=== PATIENT | female | born 1960 | race Caucasian/White ===

== ENCOUNTER → 2023-07-25 07:54 | Outpatient (REF) | payer BC, SELFPAY | LOC: WDC 07:54 | PROVIDERS: ATTENDING PHYSICIAN Obstetrics & Gynecology Gynecology; FAMILY PHYSICIAN Family Medicine | DX: R92.2 Inconclusive mammogram (principal) | CPT/HCPCS: 76641 ==

== ENCOUNTER → 2024-03-19 16:18 | Outpatient (REF) | payer BC, SELFPAY | LOC: HWWDC 16:18 | PROVIDERS: ATTENDING PHYSICIAN Obstetrics & Gynecology Gynecology; FAMILY PHYSICIAN Family Medicine | DX: Z01.419 Encounter for gynecological examination (general) (routine) without abnormal findings (principal) | CPT/HCPCS: 77063; 77067 ==

== ENCOUNTER → 2024-06-20 06:18 | Outpatient (REF) | payer BC, SELFPAY ==
[2024-06-20 10:07] LABS: % Basophils 0.4 % (0-2); % Eosinophils 0.9 % (0-6); % Lymphocytes 23.2 % (20.5-51.1); % Monocytes 9.9 % (1.7-9.3); % Neutrophils 65.6 % (42.2-75.2); Absolute Lymphocytes 1.1 10^3/uL (1.2-3.4); Absolute Monocytes 0.5 10^3/uL (0.1-0.6); Hematocrit 41.1 % (37.0-47.0); Hemoglobin 13.4 g/dL (12.0-16.0); Mean Corp Hgb Conc. 32.6 g/dL (33.0-37.0); Mean Corpuscular Hgb 29.3 pg (27.0-31.0); Mean Corpuscular Volume 89.9 fL (81.0-99.0); Mean Platelet Volume 10.2 fL (7.4-10.4); Nucleated Red Blood Cells % 0 %; Platelet Count 226 10^3/uL (130-400); Red Blood Cell Count 4.57 10^6/uL (4.20-5.40); Red Cell Dist. Width 12.8 % (11.5-14.5); White Blood Cell Count 4.5 10^3/uL (4.8-10.8)
[2024-06-20 10:47] LABS: Glycohemoglobin (HgbA1c) 5.6 % (4.0-5.6)
[2024-06-20 10:59] LABS: ALT (SGPT) 20 U/L (0-35); AST (SGOT) 32 U/L (14-36); Albumin 4.3 g/dl (3.5-5.0); Alkaline Phosphatase 111 U/L (38-126); Blood Urea Nitrogen 19 mg/dl (7-17); Calcium 9.7 mg/dl (8.4-10.2); Carbon Dioxide 25 mmol/L (22-30); Chloride 105 mmol/L (98-107); Glucose 100 mg/dl (70-99); HDL Cholesterol 87 mg/dl; LDL Cholesterol, Calculated 111 mg/dl; Potassium 4.4 mmol/L (3.5-5.1); Sodium 138 mmol/L (135-145); Total Bilirubin 0.8 mg/dl (0.2-1.3); Total Cholesterol 215 mg/dl (50-199); Total Protein 6.8 g/dl (6.3-8.2); Triglyceride 86 mg/dl (10-149); Very Low Density Lipoprotein 17 mg/dl (0-30); eGFR > 60.00
[2024-06-20 11:03] LABS: TSH Reflex To Free T4 1.43 uIU/ml (0.47-4.68)
[2024-06-20 19:16] LABS: Hepatitis C Antibody Negative (Negative)
== END ==
LOC: HWLAB 06:18
PROVIDERS: ATTENDING PHYSICIAN Internal Medicine
DX: J06.9 Acute upper respiratory infection, unspecified (principal); Z13.0 Encounter for screening for diseases of the blood and blood-forming organs and certain disorders involving the immune mechanism; R79.89 Other specified abnormal findings of blood chemistry; Z13.1 Encounter for screening for diabetes mellitus; Z13.220 Encounter for screening for lipoid disorders; Z13.29 Encounter for screening for other suspected endocrine disorder; Z11.59 Encounter for screening for other viral diseases
CPT/HCPCS: 36415; 80053; 80061; 83036; 84443; 85025; 86803

== ENCOUNTER → 2024-07-04 09:24 | Outpatient (REF) | payer BC, SELFPAY | LOC: HWRAD 09:24 | PROVIDERS: ATTENDING PHYSICIAN Internal Medicine | DX: R59.9 Enlarged lymph nodes, unspecified (principal) | CPT/HCPCS: 76536 ==

== ENCOUNTER → 2024-10-25 08:45 | Outpatient (REF) | payer BC, SELFPAY | LOC: WDC 08:45 | PROVIDERS: ATTENDING PHYSICIAN Obstetrics & Gynecology Gynecology; FAMILY PHYSICIAN Family Medicine | DX: R92.2 Inconclusive mammogram (principal) | CPT/HCPCS: 76641 ==

== ENCOUNTER → 2025-04-24 08:18 | Outpatient (REF) | payer BC, SELFPAY | LOC: HWWDC 08:18 | PROVIDERS: ATTENDING PHYSICIAN Obstetrics & Gynecology Gynecology; FAMILY PHYSICIAN Family Medicine | DX: Z12.31 Encounter for screening mammogram for malignant neoplasm of breast (principal) | CPT/HCPCS: 77063; 77067 ==

== ENCOUNTER 2025-05-08 13:48 | Emergency (ER) | payer BC, SELFPAY ==
[2025-05-08 13:51] VITALS: BP 170/110
[2025-05-08 14:05] LABS: Hematocrit 41.2 % (37.0-47.0); Hemoglobin 13.5 g/dL (12.0-16.0); Mean Corp Hgb Conc. 32.8 g/dL (33.0-37.0); Mean Corpuscular Volume 87.5 fL (81.0-99.0); Nucleated Red Blood Cells % 0 %; Platelet Count 263 10^3/uL (130-400); Red Cell Dist. Width 12.2 % (11.5-14.5)
[2025-05-08 14:25] LABS: ALT (SGPT) 24 U/L (0-35); AST (SGOT) 30 U/L (14-36); Albumin 4.6 g/dl (3.5-5.0); Alkaline Phosphatase 154 U/L (38-126); Blood Urea Nitrogen 13 mg/dl (7-17); Calcium 9.8 mg/dl (8.4-10.2); Carbon Dioxide 25 mmol/L (22-30); Chloride 101 mmol/L (98-107); Glucose 99 mg/dl (70-99); Lipase 146 U/L (23-300); Potassium 3.9 mmol/L (3.5-5.1); Sodium 134 mmol/L (135-145); Total Protein 7.7 g/dl (6.3-8.2); eGFR > 60.00
--- NOTE | 2025-05-08 15:23 | ED.GENMED ---
History of Present Illness
General
Chief Complaint: Abdominal Symptoms
Time Seen by Provider: 05/08/25 15:04
History of Present Illness
History of Present Illness:
Patient presents to the emergency department gradual onset lower abdominal pain. She has a history of lower anterior resection for polyp years ago. 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 She takes 1 Imodium daily. Over the past 3 to 4 weeks she
notes worsening pain in her lower abdomen and feels severe pressure in her rectum. She is still having normal, formed bowel movements. Denies any vomiting. Denies fevers denies bloody stools.
Past History
Past History
ED Past Medical History: Hypercholesterolemia
ED Past Surgical History: Bowel resection and
Social History
Tobacco: Non-smoker
Alcohol: None
Drug: None
Personal:
Living: with family
Phy Exam
Physical Exam
Physical Exam:
GENERAL APPEARANCE: NAD, well developed/ well nourished
EYES lids/conjunctiva normal
EARS/NOSE/THROAT Mucous membranes moist, uvula midline without oral pharyngeal erythema, exudate or swelling
HEAD/NECK normocephalic atraumatic, neck is supple.
RESPIRATORY respiratory effort normal, speaks in full sentences,
CARDIAC no edema.
ABDOMINAL abdomen is soft but tender throughout the lower abdomen. There are no peritoneal signs. She has mild distention in her lower abdomen. Rectal exam performed with RN present. There is no fecal impaction. No bleeding. No stool in the
vault.
MUSCLES/EXTREMITIES No abnormal range of motion, no swelling.
SKIN Warm, pink and dry. No rashes
NEUROLOGICAL Speech is clear and appropriate. Normal level of consciousness. 5/5 strength in all extremities.
PSYCH Normal mood and affect. Judgement/competence is appropriate
Course
Orders/Labs/Results
Orders:
Orders
05/08/25 13:57
Complete Blood Count/With Diff Urgent
Comprehensive Metabolic Panel Urgent
Lipase Urgent
05/08/25 15:20
0.9% Sodium Chloride 500 ml [Nss] 500 ml IV BOLUS
Iohexol [Omnipaque] See Protocol PO NOW STA
05/08/25 15:21
CT Abd/pel W Iv And Oral Contr Urgent
Comment:
Reason For Exam: lower abd pain, distension, prior LAR
05/08/25 15:33
Stool Culture Urgent
DELFINO Source: Feces/Stool
Specimen Description:
Date Specimen was Collected: 05/08/25
Time Specimen was Collected: 15:26
05/08/25 18:55
MetroNIDAZOLE [Flagyl] 500 mg PO NOW STA
05/08/25 19:26
Urinalysis Reflex To Culture Urgent
Date Specimen was Collected: 05/08/25
Time Specimen was Collected: 19:22
05/08/25 19:33
Ketorolac [Toradol] 15 mg IV NOW STA
05/08/25 20:00
Ciprofloxacin HCl [Cipro] 500 mg PO BID
Abnormal Lab Results
05/08/25 05/08/25
13:57 19:26
WBC 13.0 H 10^3/uL
(4.8-10.8)
MCHC 32.8 L g/dL
(33.0-37.0)
Abs Immat Gran (auto) 0.1 H 10^3/uL
(0-0.05)
Absolute Neuts (auto) 11.5 H 10^3/uL
(1.4-6.5)
Absolute Lymphs (auto) 0.7 L 10^3/uL
(1.2-3.4)
Absolute Monos (auto) 0.7 H 10^3/uL
(0.1-0.6)
Neutrophils % 88.0 H %
(42.2-75.2)
Lymphocytes % 5.4 L %
(20.5-51.1)
Sodium 134 L mmol/L
(135-145)
Alkaline Phosphatase 154 H U/L
(38-126)
Urine Ketones 3+ A
(Negative)
05/08/25 13:57
05/08/25 13:57
Vital Signs
Initial and Last Documented VS:
Initial Vital Signs
Temp Pulse Resp BP Pulse Ox
99.2 F 119 18 170/110 98
05/08/25 13:51 05/08/25 13:51 05/08/25 13:51 05/08/25 13:51 05/08/25 13:51
Last Documented Vital Signs
Temp Pulse Resp BP Pulse Ox
98.1 F 90 18 128/73 96
05/08/25 19:49 05/08/25 19:49 05/08/25 19:49 05/08/25 19:49 05/08/25 19:49
*Pulse Oximetry
SaO2: 98
Oxygen Mode of Delivery: Room air
Patient hypoxic: no
*Critical Care Note
Total Time (30-74mins, 75-104mins- exclusive of procedures): Not Applicable
ED Attending Note
ED Attending Note
ED Attending Note:
Patient presents with 1 month of worsening lower abdominal pain and distention. Patient is nontoxic-appearing. laboratory evaluation reveals mild leukocytosis to 13. Otherwise, labs are reassuring. CT scan of the abdomen and pelvis show some
soft tissue stranding with wall thickening of the sigmoid colon and distal descending colon. With her history, the concern would be possibly colitis. No evidence of perforation or abscess to require surgical or procedural intervention. She has an
appointment upcoming with her certified medicine aide in less than a week. We will start antibiotics and prescribe a small amount of pain medication to help her get through the remainder of the week. I instructed her to stop using Imodium given the
severe constipation seen.
-
Portions of this chart may have been created with voice recognition software.� Occasional wrong word or��sound alike� substitutions may have occurred due to the inherent limitations of voice recognition software.
Discharge Plan
Departure
Patient Disposition: Home (Routine Discharge)
Date of Disposition: 05/08/25
Time of Disposition: 19:48
Patient with high blood pressure during this ER visit?: Yes
Discharge Problem:
Colitis, Constipation
Instructions: Colitis
Prescriptions:
New
ciprofloxacin HCl [Cipro] 500 mg tablet
500 mg PO BID 7 Days Qty: 14 0RF
metronidazole 500 mg tablet
500 mg PO TID 7 Days Qty: 21 0RF
naproxen 500 mg tablet
500 mg PO BID PRN (Reason: Pain) Qty: 14 0RF
Rx Instructions:
do not take with ibuprofen
No Action
Citrucel
3 tab PO HS
Imodium:
1 tab PO DAILY
Referrals:
Audra Khoury MD [Family Provider, Internal Medicine]
Activity Restrictions/Additional Instructions:
Please follow up with your certified medicine aide this Monday as scheduled. Return to ER with fevers, worsening pain.
Interventions
Interventions:
*Risk Screen - Suicide Last Done: 05/08/25 13:51
*General Assessment Last Done: 05/08/25 19:49
*Neglect/Abuse Screening Last Done: 05/08/25 13:51
*ED COVID-19 Vaccine History Last Done: 05/08/25 19:49
*ED Influenza Vaccine History Last Done: 05/08/25 19:49
[facility] Fall Risk Assessment Tool Last Done: 05/08/25 19:49
*Nursing Disposition Last Done: 05/08/25 20:04
JU-Tyncbf-Vqghrmhntn Assessment Last Done: 05/08/25 15:00
Discharge Date and Time
Discharge Date/Time: 05/08/25 20:06
Print Language: MOROCCAN
[2025-05-08] MEDS: OMNIPAQUE 50 ML PO (15:30)
[2025-05-08] MEDS: NSS 500 IV (15:31)
[2025-05-08] MEDS: CIPRO 500 MG PO (19:23)
[2025-05-08] MEDS: FLAGYL 500 MG PO (19:23)
[2025-05-08] MEDS: TORADOL 15 MG IV (19:36)
[2025-05-08 19:37] LABS: Urine Character Clear (Clear)
[2025-05-08 19:49] VITALS: BP 128/73
== END 2025-05-08 20:06 | disposition home or self-care (01) ==
LOC: EMR 13:48
PROVIDERS: Emergency Medicine; EMERGENCY PHYSICIAN Emergency Medicine; FAMILY PHYSICIAN Internal Medicine
DX: K52.9 Noninfective gastroenteritis and colitis, unspecified (principal); K59.00 Constipation, unspecified; E78.00 Pure hypercholesterolemia, unspecified
CPT/HCPCS: 99284; 96374; 96361 ×2; 74177; 80053; 81003; 83690; 85025; 87045; 87046; 87427; Q9967